=== PATIENT | male | born 1995 | race Caucasian/White ===

== ENCOUNTER 2016-09-14 20:27 | Emergency (ER) | payer MEDICAID, OTHER ==
[~2016-09-14 20:27] MED LIST: PROM6.257 PO; Z.0.NO CURRENT MEDS; ZITH250T PO
[2016-09-14 20:29] VITALS: BP 150/61; PULSE 108; RESP 20; TEMP 98.3; O2SAT 97
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
[2016-09-14] MEDS ORDERED: IBUP800T23 PO (22:38)
[2016-09-14] MEDS ORDERED: IBUPROFEN 800 MG TAB PO ONE (22:45)
== END 2016-09-14 22:55 | disposition home or self-care (01) ==
LOC: PHEFT 20:27
DX: S80.01XA Contusion of right knee, initial encounter (principal); M25.461 Effusion, right knee; V09.20XA Pedestrian injured in traffic accident involving unspecified motor vehicles, initial encounter; Y92.410 Unspecified street and highway as the place of occurrence of the external cause
CPT/HCPCS: 73564; 99284